=== PATIENT | female | born 2000 | race Caucasian/White ===

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

== ENCOUNTER 2021-07-13 00:57 | Emergency (ER) | payer MEDICAID ==
[~2021-07-13] VITALS: Ht 160 cm; Wt 65.0 kg
[2021-07-13] MEDS ORDERED: IBUPROFEN 600MG TABLET PO ONE (04:00)
[2021-07-13] MEDS ORDERED: IBUP-2029 MT (04:06)
[2021-07-13] MEDS ORDERED: T3 PO (04:06)
[2021-07-13 05:02] VITALS: BP 122/87
== END 2021-07-13 05:26 | disposition home or self-care (01) ==
LOC: ER 00:57
DX: R51.9 Headache, unspecified (principal); M25.571 Pain in right ankle and joints of right foot; M79.671 Pain in right foot
CPT/HCPCS: 29515; 73610; 73630; 99284

== ENCOUNTER 2023-07-14 21:44 | Emergency (ER) | payer MEDICAID ==
[~2023-07-14] VITALS: Ht 154.9 cm; Wt 72.4 kg
[~2023-07-14 21:44] MED LIST: IBUP-2029 MT; T3 PO
[2023-07-14 21:46] VITALS: BP 124/71; O2SAT 100
[2023-07-14 21:48] VITALS: PULSE 161; RESP 20; TEMP 103.1
[2023-07-14] MEDS ORDERED: ACETAMINOPHEN 325MG TABLET PO ONE (22:00)
[2023-07-14] MEDS ORDERED: IBUPROFEN 600MG TABLET PO ONE (22:00)
== END 2023-07-15 02:00 | disposition home or self-care (01) ==
LOC: ER 21:44
DX: R50.9 Fever, unspecified (principal)
CPT/HCPCS: 99281

== ENCOUNTER 2025-03-14 05:42 | Emergency (ER) | payer MEDICAID ==
[~2025-03-14] VITALS: Ht 152.4 cm; Wt 82.0 kg
[2025-03-14 05:54] VITALS: O2SAT 98
[2025-03-14 06:33] LABS: CHLORIDE 105 mEq/L (98-107); POTASSIUM 4.1 mEq/L (3.5-5.1); SODIUM 138 mEq/L (136-145)
[2025-03-14 06:34] LABS: CALCIUM 9.9 mg/dL (8.7-10.4); CARBON DIOXIDE 28 mEq/L (21-32)
[2025-03-14 06:39] LABS: CREATININE 0.6 mg/dL (0.6-1.0); GLUCOSE 133 mg/dL (70-105); UREA NITROGEN BLOOD 11 mg/dL (9-23)
[2025-03-14 06:40] LABS: BASOPHILS % 0.5 % (0.0-2.0); EOSINOPHILS % 0.4 % (0.0-5.0); HEMOGLOBIN. 13.4 g/dL (12.0-16.0); LYMPHOCYTES % 10.5 % (20.0-50.0); MEAN CORPUSCULAR HEMOGLOBIN 30.6 pg (28.0-32.0); MEAN CORPUSCULAR HGB CONC 33.6 g/dL (31.0-37.0); MEAN PLATELET VOLUME 8.9 fl (7.4-10.4); NEUTROPHILS % 84.6 % (40.0-76.0); PLATELET 293 x1000/uL (130-400); RED BLOOD CELL COUNT 4.39 mill/uL (4.2-5.4); RED CELL DISTRIBUTION WIDTH 14.3 % (11.6-14.6); WHITE BLOOD COUNT 14.5 x1000/uL (4.5-11.0)
[2025-03-14 06:41] LABS: ALANINE AMINOTRANSFERASE 30 IU/L (10-49); ALBUMIN 4.3 g/dL (3.2-4.8); ASPARTATE AMINOTRANSFERASE 22 IU/L (<34); BILIRUBIN DIRECT 0.1 mg/dL (<=3.0); BILIRUBIN TOTAL 0.5 mg/dL (0.1-1.0); HCG SCREEN POSITIVE; PROTEIN TOTAL 7.5 g/dL (6.0-8.3)
[2025-03-14] MEDS: ONDANSETRON HCL 4MG TABLET PO ONE (07:56)
[2025-03-14] MEDS: ACETAMINOPHEN 325MG TABLET PO ONE (07:57)
[2025-03-14 08:28] LABS: COLOR URINE BLOODY (YELLOW); GLUCOSE URINE NEGATIVE (NEGATIVE); PH URINE 7.5 (4.5-8.0); PROTEIN URINE 3+ (NEGATIVE); SPECIFIC GRAVITY URINE 1.015 (1.005-1.030)
[2025-03-14 08:29] LABS: KETONES URINE 1+ (NEGATIVE); LEUKOCYTE ESTERASE URINE 2+ (NEGATIVE); NITRITE URINE POSITIVE (NEGATIVE); OCCULT BLOOD URINE 3+ (NEGATIVE)
[2025-03-14 08:58] LABS: CLARITY URINE CLOUDY (CLEAR)
[2025-03-14 09:07] LABS: RBC URINE TNTC /hpf (0-2); WBC URINE TNTC /hpf (0-2)
[2025-03-14 09:08] LABS: SQUAMOUS EPITHELIAL CELL URINE 1+ /lpf (RARE/1+)
[2025-03-14 09:10] LABS: BACTERIA URINE TRACE
[2025-03-14] MEDS ORDERED: TOPUD PO (10:14)
[2025-03-14] MEDS ORDERED: NITR100C PO (10:14)
[2025-03-14 10:17] VITALS: BP 95/63; PULSE 67; RESP 16; TEMP 36.6; O2SAT 100
== END 2025-03-14 10:22 | disposition home or self-care (01) ==
LOC: ER 05:59
DX: O20.0 Threatened abortion (principal); Z79.899 Other long term (current) drug therapy; Z3A.01 Less than 8 weeks gestation of pregnancy
CPT/HCPCS: 99284; 76801; 80076; 80048; 81003; 84703; 84702; 85025; 86850; 86900; 86901; 87086; 36415; 76817; Q0162

== ENCOUNTER 2025-03-17 11:40 | Emergency (ER) | payer MEDICAID, OTHER ==
[~2025-03-17] VITALS: Ht 162.6 cm; Wt 100.0 kg
[~2025-03-17 11:40] MED LIST changes: +NITR100C PO; +TOPUD PO
[2025-03-17 11:47] VITALS: O2SAT 99
[2025-03-17 11:48] VITALS: BP 99/69; PULSE 65; RESP 16; TEMP 37.2; O2SAT 95
[2025-03-17 13:18] LABS: BASOPHILS % 0.5 % (0.0-2.0); HEMATOCRIT. 42.1 % (36.0-48.0); HEMOGLOBIN. 13.6 g/dL (12.0-16.0); LYMPHOCYTES % 24.8 % (20.0-50.0); MEAN CORPUSCULAR HEMOGLOBIN 29.7 pg (28.0-32.0); MEAN CORPUSCULAR HGB CONC 32.4 g/dL (31.0-37.0); MEAN CORPUSCULAR VOLUME 91.6 fL (81.0-99.0); MEAN PLATELET VOLUME 8.9 fl (7.4-10.4); MONOCYTES % 6.8 % (2.0-8.0); NEUTROPHILS % 66.9 % (40.0-76.0); PLATELET 283 x1000/uL (130-400); RED BLOOD CELL COUNT 4.59 mill/uL (4.2-5.4); RED CELL DISTRIBUTION WIDTH 14.4 % (11.6-14.6); WHITE BLOOD COUNT 9.5 x1000/uL (4.5-11.0)
[2025-03-17 13:24] LABS: CHLORIDE 108 mEq/L (98-107); POTASSIUM 4.8 mEq/L (3.5-5.1); SODIUM 140 mEq/L (136-145)
[2025-03-17 13:25] LABS: CALCIUM 9.2 mg/dL (8.7-10.4); CARBON DIOXIDE 26 mEq/L (21-32)
[2025-03-17 13:27] LABS: HCG SCREEN POSITIVE
[2025-03-17 13:30] LABS: B-HCG QUANTITATIVE 32 mIU/mL (<6); CREATININE 0.7 mg/dL (0.6-1.0); GLUCOSE 89 mg/dL (70-105); UREA NITROGEN BLOOD 15 mg/dL (9-23)
== END 2025-03-17 16:50 | disposition home or self-care (01) ==
LOC: ER 11:40
DX: O03.9 Complete or unspecified spontaneous abortion without complication (principal); Z79.899 Other long term (current) drug therapy; Z3A.01 Less than 8 weeks gestation of pregnancy
CPT/HCPCS: 80048; 81025; 84703; 84702; 85025; 86850; 86900; 86901; 36415; 76801; 76817; 99284; Z7610 ×4; A4606